=== PATIENT | female | born 2000 | race African-American/Black ===

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

== ENCOUNTER 2025-02-13 15:16 | Emergency (ER) | payer MEDICAID ==
[~2025-02-13] VITALS: Ht 167.6 cm; Wt 82.0 kg
[2025-02-13 15:21] VITALS: O2SAT 98
[2025-02-13 16:36] LABS: BASOPHILS % 0.8 % (0.0-2.0); DIFFERENTIAL COMMENT 0; EOSINOPHILS % 0.8 % (0.0-5.0); HEMATOCRIT. 28.1 % (36.0-48.0); LYMPHOCYTES % 37.2 % (20.0-50.0); MEAN CORPUSCULAR HEMOGLOBIN 25.1 pg (28.0-32.0); MEAN CORPUSCULAR VOLUME 78.3 fL (81.0-99.0); MEAN PLATELET VOLUME 8.5 fl (7.4-10.4); MONOCYTES % 6.4 % (2.0-8.0); NEUTROPHILS % 54.8 % (40.0-76.0); PLATELET 248 x1000/uL (130-400); RED BLOOD CELL COUNT 3.59 mill/uL (4.2-5.4); RED CELL DISTRIBUTION WIDTH 15.8 % (11.6-14.6); WHITE BLOOD COUNT 6.9 x1000/uL (4.5-11.0)
[2025-02-13 16:43] LABS: CHLORIDE 106 mEq/L (98-107); POTASSIUM 4.1 mEq/L (3.5-5.1); SODIUM 137 mEq/L (136-145)
[2025-02-13 16:45] LABS: CARBON DIOXIDE 24 mEq/L (21-32)
[2025-02-13 16:50] LABS: CREATININE 0.6 mg/dL (0.6-1.0); GLUCOSE 82 mg/dL (70-105); UREA NITROGEN BLOOD 6 mg/dL (9-23)
[2025-02-13 16:50] LABS: COLOR URINE YELLOW (YELLOW); GLUCOSE URINE NEGATIVE (NEGATIVE); KETONES URINE NEGATIVE (NEGATIVE); LEUKOCYTE ESTERASE URINE NEGATIVE (NEGATIVE); NITRITE URINE NEGATIVE (NEGATIVE); OCCULT BLOOD URINE NEGATIVE (NEGATIVE); PH URINE 7.5 (4.5-8.0); PROTEIN URINE NEGATIVE (NEGATIVE); SPECIFIC GRAVITY URINE 1.027 (1.005-1.030)
[2025-02-13 16:59] LABS: HCG SCREEN NEGATIVE
[2025-02-13 17:10] LABS: CLARITY URINE HAZY (CLEAR)
[2025-02-13 17:12] LABS: BACTERIA URINE TRACE; RBC URINE NONE SEEN /hpf (0-2); WBC URINE 0-2 /hpf (0-2)
[2025-02-13 17:13] LABS: SQUAMOUS EPITHELIAL CELL URINE 3+ /lpf (RARE/1+)
[2025-02-13 17:55] VITALS: BP 116/70; PULSE 76; RESP 14; TEMP 37.1; O2SAT 99
== END 2025-02-13 17:57 | disposition home or self-care (01) ==
LOC: ER 15:16
DX: D64.9 Anemia, unspecified (principal); E11.9 Type 2 diabetes mellitus without complications
CPT/HCPCS: 36415; 80048; 81003; 84703; 85025; 99283